=== PATIENT | male | born 1955 | race Caucasian/White ===

== ENCOUNTER 2024-03-08 11:26 | Emergency (ER) | payer MEDICARE ==
[2024-03-08] MEDS ORDERED: AFRIN NASAL MIST 15 ML BOT ONE (12:45)
== END 2024-03-08 13:15 | disposition home or self-care (01) ==
LOC: CSHERS 11:26
DX: R04.0 Epistaxis (principal); I10 Essential (primary) hypertension; E78.5 Hyperlipidemia, unspecified; K21.9 Gastro-esophageal reflux disease without esophagitis; F17.210 Nicotine dependence, cigarettes, uncomplicated
CPT/HCPCS: 99283